=== PATIENT | female | born 2005 | race African-American/Black ===

== ENCOUNTER 2024-01-30 18:07 | Emergency (ER) | payer MEDICAID, SELFPAY ==
--- NOTE | 2024-01-30 18:14 | ED.URI ---
HPI - URI/Sore Throat General Chief Complaint: Upper Respiratory Infection Stated Complaint: SORE THROAT Time Seen by Provider: 01/30/24 18:21 History of Present Illness HPI Narrative: 18 y/o female presented for c/o sore throat x2 days. Pain is worse in the morning and associated with sinus congestion/drainage. Denies sob, wheezing, n/v/d/f/c. Not taking anything for symptoms. Review of Systems Review of Systems: CONSTITUTIONAL: Denies body aches, fever, chills, or sweats. EYES: Denies visual changes, redness, or discharge. ENT: Reports rhinorrhea, congestion, sore throat CARDIOVASCULAR: Denies chest pain, palpitations, or edema. RESPIRATORY: Denies dyspnea. GASTROINTESTINAL: Denies abdominal pain, nausea, vomiting, or diarrhea. SKIN: Denies rash, itching, or wounds. MUSCULOSKELETAL: Denies back pain, joint pain, or myalgia. NEUROLOGIC: Denies headache Exam Narrative: GENERAL: well-appearing, no acute distress. EYES: conjunctivae clear ENT: Mucous membranes moist. TMs pearly topete with normal light reflex bilaterally; no tragal tenderness. Oropharynx erythematous without lesions. Tonsils enlarged 2+ with exudate. No drooling, no hoarseness, no trismus, uvula midline. No tripod positioning, hot potato voice, or soft palate swelling. NECK: Supple. No lymphadenopathy CHEST: Clear to auscultation, breath sounds equal. No respiratory distress, speaks in full sentences. HEART: Regular rate and rhythm. No murmur heard. SKIN: Warm, dry, no rash. NEURO: Alert and oriented x3. Course Course Emergency Course: Patient is aware of diagnosis, understands and agrees to treatment plan. Anticipatory guidance given. Patient agrees to follow-up as directed and is aware of reasons to seek care at the emergency department. Portions of this record may have been created with voice recognition software Level of Care: Express Care Visit MDM - URI/Sore Throat MDM Narrative Medical decision making narrative: Neg strep result reviewed with pt. will treat based on PE and CC. Advise supportive treatments. Patient is appropriate for outpatient treatment and follow-up. Differential Diagnosis Differential diagnosis: Likely upper respiratory infection, viral infection and pharyngitis Discharge Plan Discharge Clinical Impression: Pharyngitis Patient Disposition: Home, Self-Care Condition: Stable Instructions: Antibiotic Form, Strep Throat (ED) Additional Instructions: Strep test negative. You will be given the antibiotic based on your symptoms and the physical exam. - Take the antibiotic as directed. Fever and sore throat typically resolve within one to three days. Most patients can return to work, school, after 12 to 24 hours of antibiotic therapy, provided you are fever free and otherwise well. -Eat and drink things that are easy to swallow, like soft foods, cool liquids, tea with honey, or popsicles . -Salt water gargles and/or may use topical anesthetic ( Chloraseptic spray) or lozenges to relieve dryness or throat pain -Alternate Tylenol and ibuprofen as needed for pain and fever as directed. -Frequent hand washing or hand digital marketing analyst is one of the best ways to prevent spread of infection. Throw away the toothbrush after 24hours of antibiotic. -Follow up with primary care provider in 2-3 days if condition is not improving -Go to the ER if you have trouble breathing, cannot drink enough fluids, have muffled voice or drooling, difficulty opening your mouth, or severe swelling. Prescriptions: New azithromycin [Zithromax Z-Lukas] 250 mg tablet See Rx Instructions .ROUTE .COMPLEX Qty: 6 0RF Rx Instructions: For 250 mg dose pack: take 500 mg today (day 1), then 250 mg for 4 days (days 2-5) Follow-up/Referrals: UNKNOWN,DOCTOR [Primary Care Provider] - Time of Disposition: 18:31
[2024-01-30 18:24] VITALS: BP 122/77; PULSE 92; RESP 16; TEMP 37; O2SAT 100
== END 2024-01-30 18:33 | disposition home or self-care (01) ==
PROVIDERS: Emergency Provider Nurse Practitioner Family
DX: J02.9 Acute pharyngitis, unspecified (principal)
CPT/HCPCS: 87081; 87880; 99213; G0463

== ENCOUNTER 2024-03-15 15:19 | Emergency (ER) | payer MEDICAID, SELFPAY ==
[2024-03-15 15:26] VITALS: BP 120/72; PULSE 108; RESP 16; TEMP 37.6; O2SAT 100
--- NOTE | 2024-03-15 15:56 | ED.GENADULT ---
HPI - General Adult General Chief complaint: Upper Respiratory Infection Stated complaint: Strep Symptoms Time Seen by Provider: 03/15/24 15:56 Source: patient, RN notes reviewed and old records reviewed Mode of arrival: ambulatory Limitations: no limitations History of Present Illness HPI narrative: 18-year-old female to Express Care for complaint nausea, vomiting, generalized body aches, diarrhea, sore throat that started yesterday. Patient states she has vomited twice today and has had five episodes of diarrhea today. Patient denies pertinent medical history. Patient denies any known sick contacts. Related Data Allergies Allergy/AdvReac Type Severity Reaction Status Date / Time mold Allergy Other Verified 01/30/24 18:32 peanut Allergy Rash Verified 03/15/24 16:05 Penicillins Allergy Other Verified 01/30/24 18:32 Review of Systems Review of Systems: All systems reviewed & are unremarkable except as noted in HPI and below Constitutional: Constitutional: Reports as per HPI, Reports body ache(s), Reports chills, Reports lethargy and Reports poor appetite Eyes: Eyes: Reports no additional eye complaints ENT: Reports as per HPI and Reports sore throat Cardiovascular: Cardiovascular: Reports no additional cardiovascular complaints, Denies chest pain and Denies dyspnea Respiratory: Respiratory: Reports no additional respiratory complaints, Denies cough and Denies dyspnea Gastrointestinal: Gastrointestinal: Reports diarrhea, Reports nausea and Reports vomiting Musculoskeletal: Musculoskeletal: Reports as per HPI and Reports myalgias Neurologic: Reports system reviewed and no additional complaints, except as documented Psychiatric: Psychiatric: Reports no additional psychiatric complaints PMFSH Comments At the time of my signature, I reviewed and agree with the nursing past medical, surgical, social, and family history. There is no relevant family history pertinent to the patient complaint. Exam Const: General: cooperative, no acute distress, well developed, alert, ill appearing acutely, tired appearing, uncomfortable, well groomed and well nourished Nutritional Appearance: well nourished Orientation/consciousness: patient oriented x3 Limitations: no limitations HENMT: Head: normal to inspection Ears: external ears normal Face/Nose/Sinus: Normal external nose present, Normal nares present, normal facial exam, No erythema and No edema Face and sinus: normal facial exam, no erythema and no edema Mouth: Yes Normal oral and palatal mucosa present Throat: postnasal drainage Eyes: General: appearance normal, both eyes and all related structures Neck: Neck: normal visual inspection, full ROM and no meningeal signs Lymphatic: no lymphadenopathy noted and no lymphedema noted Chest: Chest palpation & inspection: normal inspection of the chest Resp: Effort & Inspection: normal respiratory effort and able to speak in complete sentences Auscultation: clear to auscultation bilaterally Cardio: Jugular venous distension: no JVD Rate: regular rate Rhythm: regular rhythm GI: Inspection: non-distended and No visible peristalsis Back/Spine/Pelvis: Cervical Spine: cervical ROM normal Skin: General skin exam: normal color, no rashes or lesions noted and turgor normal Neuro: General: patient oriented x3, gait normal, moves all extremities and no meningeal signs Speech: normal speech Gait exam (Neuro): Normal gait present Extrem: General: normal to inspection, full ROM and capillary refill normal Psych: Appearance: grossly normal and well kempt Course Course Emergency Course: Some parts of this dictation were generated by voice recognition software and may contain typographical and/or grammatical inaccuracies. Level of Care: Express Care Visit Vital Signs Vital signs: Vital Signs Temperature 37.6 C H 03/15/24 15:26 Pulse Rate 108 H 03/15/24 15:26 Respiratory Rate 16 03/15/24 15:26 Blood Pressure
== END 2024-03-15 16:24 | disposition home or self-care (01) ==
PROVIDERS: Emergency Provider Nurse Practitioner Family
DX: B34.9 Viral infection, unspecified (principal); K21.9 Gastro-esophageal reflux disease without esophagitis; Z20.822 Contact with and (suspected) exposure to COVID-19
CPT/HCPCS: 87081; 87426; 87804; 87880; 99213; G0463

== ENCOUNTER 2024-07-18 22:46 | Emergency (ER) | payer MEDICAID, SELFPAY ==
[2024-07-18 22:56] VITALS: BP 130/90; PULSE 109; RESP 18; TEMP 37.4; O2SAT 100
[2024-07-18 23:32] LABS: Strep Group A RT-PCR NOT DETECTED (Negative)
[2024-07-18 23:44] LABS: Influenza A QL RT-PCR Negative (Negative); Influenza B QL RT-PCR Negative (Negative); RSV RNA, RT-PCR Negative (Negative); SARS-CoV-2 RNA PCR Positive (Negative)
--- NOTE | 2024-07-19 02:04 | PC.NURSE ---
1st call no answer.
== END 2024-07-19 02:04 | disposition left against medical advice (07) ==
LOC: ANHED 07-19 02:11
PROVIDERS: Emergency Provider Family Medicine
DX: R51.9 Headache, unspecified (principal)
CPT/HCPCS: 87637; 87651; 99199

== ENCOUNTER 2024-09-13 14:27 | Emergency (ER) | payer SELFPAY ==
--- NOTE | ~2024-09-13 | XR_ITS ---
XR chest 2V Ordering provider: Betsey Johnson PA-C History: 19 years Female with . cough, CONGESTION X 3 WEEKS . Comparison: None. FINDINGS: MEDIASTINUM: The cardiac silhouette is not enlarged. LUNGS: No infiltrates, effusions or pneumothorax. OTHER: No free air under the diaphragm. IMPRESSION: No acute cardiopulmonary pathology. Reviewed, dictated and finalized at location A.
[2024-09-13 14:34] VITALS: BP 135/89; PULSE 115; RESP 22; O2SAT 100
[2024-09-13 14:37] VITALS: TEMP 37
[2024-09-13 15:33] LABS: Influenza A QL RT-PCR Negative (Negative); Influenza B QL RT-PCR Negative (Negative); RSV RNA, RT-PCR Negative (Negative); SARS-CoV-2 RNA PCR Negative (Negative)
--- NOTE | 2024-09-13 15:39 | ED.URI ---
HPI - URI/Sore Throat General Chief Complaint: Upper Respiratory Infection Stated Complaint: cough Time Seen by Provider: 09/13/24 14:38 Source: patient Mode of arrival: ambulatory Limitations: no limitations History of Present Illness HPI Narrative: This is a 19 year old female that presents to the ER for cold symptoms. Present over the last week. Reports cough, congestion, rhinorrhea. Reports history of asthma and that she has been wheezing. She does not currently have an inhaler. Denies fevers. Related Data Allergies Allergy/AdvReac Type Severity Reaction Status Date / Time mold Allergy Other Verified 09/13/24 14:30 peanut Allergy Rash Verified 09/13/24 14:30 Penicillins Allergy Other Verified 09/13/24 14:30 Review of Systems Review of Systems: CONSTITUTIONAL: Denies fever ENT: Reports rhinorrhea, congestion RESPIRATORY: Reports cough and dyspnea. All systems reviewed & are unremarkable except as noted in HPI and below PMFSH Past Medical History Medical History (Updated 09/13/24 @ 16:17 by Betsey Johnson PA-C) History of asthma Social History Social History (Updated 09/13/24 @ 15:40 by Betsey Johnson PA-C) Smoking status: Never smoker Exam Narrative: GENERAL: Well-appearing, well-nourished, and in no acute distress. HEAD: Normocephalic, atraumatic. EYES: EOMI. ENT: Nares clear, no rhinorrhea or epistaxis. Mucous membranes moist. Oropharynx without tonsillar hypertrophy exudate or other lesions. Bilateral TMs pearly topete non-bulging NECK: Supple. No adenopathy or masses. CHEST: No respiratory distress. Lung sounds mildly diminished. No wheezes rales or rhonchi HEART: Regular rate and rhythm. No murmur heard. Normal peripheral pulses. EXTREMITIES: Normal range of motion. No edema. SKIN: Warm, dry, no rash. NEURO: No focal deficits. Alert and oriented x3. PSYCH: Normal mood and affect Course Course Emergency Course: Patient with improvement after nebulizer treatment Vital Signs Vital signs: Vital Signs Pulse Rate 115 H 09/13/24 14:34 Respiratory Rate 22 H 09/13/24 14:34 Blood Pressure 135/89 09/13/24 14:34 Pulse Oximetry 100 09/13/24 14:34 Temperature 98.6 F 09/13/24 14:37 Pulse Rate 110 H 09/13/24 15:59 Respiratory Rate 20 09/13/24 15:59 Blood Pressure 135/89 09/13/24 14:34 Pulse Oximetry 100 09/13/24 14:34 Oxygen Delivery Room Air 09/13/24 15:08 MDM - URI/Sore Throat MDM Narrative Medical decision making narrative: Patient presents the emergency department for cold symptoms present over the last week. She is afebrile and nontoxic appearing. Tachycardic upon arrival, this improved after treatment of her asthma. Influenza, RSV and COVID screens are negative. Chest x-ray without acute cardiopulmonary abnormality. Patient received nebulizer treatment and a dose of prednisone with improvement. Instructed on further care of likely viral infection. Will be continued on oral steroids and given prescription for albuterol inhaler for asthma exacerbation. She is to follow up with primary provider. She was given warnings to return to the ER Differential Diagnosis Differential diagnosis: Likely upper respiratory infection, viral infection, bronchitis, influenza and other (asthma exacerbation, pneumonia) Lab Data Attestation: I reviewed the patient's lab results. Labs: Lab Results 09/13/24 Range/Units 14:53 Influenza A (RT-PCR) Negative (Negative) Influenza B (RT-PCR) Negative (Negative) RSV (RT-PCR) Negative (Negative) SARS-CoV-2 RNA (RT-PCR) Negative (Negative) Imaging Data Radiologist's impression: ITS Impressions Chest X-Ray 09/13/24 14:49 IMPRESSION: No acute cardiopulmonary pathology. Critical Care Time Critical Care Time Critical Care Time: No Discharge Plan Discharge Clinical Impression: Upper respiratory infection Qualifiers: URI type: unspecified URI Qualified Code(s
[2024-09-13 15:47] VITALS: PULSE 113; RESP 21
[2024-09-13] MEDS: IPRATROPIUM 0.5 MG/ALBUTEROL SULFATE 2.5 MG AMPUL.NEB 3 ML INHALATION (15:48)
[2024-09-13] MEDS: predniSONE 20 MG TABLET 40 MG PO (15:49)
[2024-09-13 15:59] VITALS: PULSE 110; RESP 20
[2024-09-13 16:30] VITALS: BP 122/85; PULSE 97; RESP 18; TEMP 37.2; O2SAT 100
== END 2024-09-13 16:35 | disposition home or self-care (01) ==
PROVIDERS: Emergency Provider Physician Assistant
DX: J06.9 Acute upper respiratory infection, unspecified (principal); J45.901 Unspecified asthma with (acute) exacerbation; Z20.822 Contact with and (suspected) exposure to COVID-19
CPT/HCPCS: 71046; 87637; 94640; 99283; J7512

== ENCOUNTER 2025-02-15 20:52 | Emergency (ER) | payer BC, SELFPAY ==
[2025-02-15 20:54] VITALS: BP 136/90; PULSE 108; RESP 15; TEMP 36.9; O2SAT 99
--- OUTSIDE RECORDS SUMMARY | 2025-02-15 20:55 | XMS_ITS | Clinical Summary ---
Author Organization [facility] Address [address] [place] [address] Care Team Providers Care Stock Speculator Name Role Phone Oanh Ennis MD Primary Care Provider [phone] Network, [facility] Unavailable Unavai lable Allergies Active Allergy Reactions Criticality Noted Date Comments Mold Extracts Unknown 01/31/2011 Penicillins Unknown 01/31/2011 Peanut Other 01/01/2009 Facial swelling Tomato Unknown 01/31/2011 Medications cetirizine (ZYRTEC) 10 mg PO tabletIndication s:Environmental allergies take 1 tablet by mouth daily as needed. 02/08/2021 Active EPINEPHrine (EpiPen 2-Lukas) 0.3 mg/0.3 mL Inj pen injector inject 0.3 mL into the muscle as needed for Anaphylaxis . 2 each 02/08/2021 Active ofloxacin (OCUFLOX) 0.3 % Opht eye drops apply 1 drop into both eyes four times daily. 1 Bottle 02/08/2021 Active norgestimate-eth inyl estradioL (ORTHO TRI-CYCLEN LO) 0.18/0.215/0.25 mg-25 mcg PO tablet take 1 tablet by mouth daily. 1 Package 1 02/08/2021 Active Active Problems Patient Care Coordination No te Formatting of this note migh t be different from the original. Risk - Low-Social Problem Noted Date Diagnosed Date BMI (body mass index), pediatric, 95-99% for age 0706/12/2015 Acanthosis nigricans 06/05/2015 Eczema 03/21/2014 Healthcare maintenance 03/09/2014 Allergic rhinitis due to other allergen 06/13/20 13 Intermittent asthma 02/18/2011 Overview (02/14/2021): As of 02/08/21--last albuterol use around 9709-3803 Food allergy 02/18/2011 Overview (03/09/2014): Tomatoes, peanuts; no recent A+I visits (diagnosed by RAST testing) Resolved Problems Problem Noted Date Diagnosed Date Resolved Date Leg pain, bilateral 03/21/2014 06/05/20 15 Hip pain, bilateral 03/21/2014 06/05/20 15 Exercise-induced asthma 06/13/201301/22 Scoliosis concern 09/07/2012 06/05/2015 Overview (09/07/2012): Mild curve on standing. Will continue to follow clinically BMI,pediatric > 99% for age 0402/21/2011 06/12/2015 Headache 02/21/2011 06/05/2015 Overview (09/01/2017): Likely migraine, keeping MACEDO diary IMO Load - [id number] Failed vision screen 02/21/2011 014 Overview (09/07/2012): Referred to ophthalmology. Now wearing glasses. Scabies 02/04/2010 02/18/2011 Overview (02/04/2010): Gave Rx for Permethrin x 2 doses. Immunizations Immunization Administration Dates Next Due Adacel - Tetanus-diphtheria- acellular Pertussis (Tdap) Vaccine 06/05/2015 Yspvnygkac-fxsjldv-smmjgrnkv Pertussis (DTaP) Injection 07/03/2009,06/07/2009,08/28/2008,09/09,2004 Fluarix (Pf) - Influenza Vac cine Quad Linette 0.5 Ml Im Injection 02/08/2021,09/08/2016 Gardasil - Human Papilloma V irus Vaccine 06/05/2015 Gardasil 9 - Human Papilloma Virus Vaccine 09/08/2016 Hepatitis A,ped/adol,2-Dose 07/10/2011 M-M-R II - MEASLES,MUMPS,RUB CATHY VACCINE 08/28/2008,04/03/2005 MENACTRA - MENINGOCOCCAL VAC CINE A,C,Y,W-135 50 MCG 06/05/2015 MENVEO - MENINGOCOCCAL VACCI NE A,C,Y,W-135-DIP 10CG-5 MCG 02/08/2021 PREVNAR 7 - PNEUMOCOCCAL 7-V ALPS VACCINE 04/03/2005,2004,2004,06/07 VARIVAX - VARICELLA VIRUS VA CCINE LIVE 1,350 UNIT/0.5 ML 08/28/2008,04/03/2005 haemophilus B conjugated inj ection (HIB) 07/08/2005,2004,2004,06/07 hepatitis A vaccine injection, Adult 07/03/2009 hepatitis B vaccine injection 2004, 004,2004 inactivated poliovirus vacci ne injection/oral 08/28/2008,2004,2004,06/07 influenza virus vaccine injection 11/30/2013,,01/31/2011 Family History Medical History Relation Comments Coronary Artery Disease Maternal Grandmother den ies Diabetes Maternal Grandmother denies Hypertension Maternal Grandmother denies Lipid Problems Maternal Grandmother denies Pulmonary Maternal Grandmother asthma Neurology Mother migraines Obesity Mother Relation Status Comments Maternal Grandmother Mother Alive lives with Social History Tobacco Use Types Packs/Day Years Used Date Smoking Tobacco: Never Smokeless Tobacco: Never Alcohol Use Standard Drinks/Week Comments Never 0 (1 standard drink = 0.6 oz pur e alcohol) Social Connections Answer Date Recorded Conversations with friends/family/neighbors per week Not on file 01/31/2021 Food Insecurity Answer Date Recorded Currently or in the past 3 m [facility], have you worried your food would run out before you had money to buy more? No 2020 In the past 12 months, have you run out of food or been unable to get more? No 02/08/2021 Transportation Needs Answer Date Record ed Currently or in the past 3 m [facility], has lack of transportation kept you from medical appointments, getting food or medicine, or providing care to a family member? Unrecognized value 02/08/2021 Has the lack of transportati on kept you from meetings, work, or from getting things needed for daily living? Unrecognized value 02/08/2021 Medical Transportation Needs? Patient refused Daily Living Transportation Needs? [Peds Only] P atient refused 02/08/2021 Housing Stability Answer Date Recorded Mortgage Payment Concerns? Not on file 02/16 [address] of Places Lived in the Last Year Not on f ile 02/16/2022 Unstable Housing? Not on file 02/16/2022 Caregiver Education and Work Answer Ritchie e Recorded Do you ever need help reading hospital materials ? No 02/08/2021 Do you have a high school degree? No 02/08/2021 Legal Advice Answer Date Recorded Do you have concerns about a [place] matters for you or your family? No 02/08/2021 Do you need legal advice to help with any proble ms? No 02/08/2021 Utilities Answer Date Recorded Currently or in the past 12 months, have you or household members gone without utilities (heat, water, electricity)? No 02/08/2021 Comments No Sex and Gender Information Value Date Recorded Sex Assigned at Not on file Legal Sex Female 4:24 PM APPLICATION DEVELOPMENT LIAISON Gender Identity Not on file Sexual Orientation Not on file Last Filed Vital Signs Vital Sign Reading Time Taken Comments Blood Pressure 110/70 05/07/2023 3:47 PM CDT Pulse 76 05/07/2023 3:47 PM CDT Temperature 36.3 C (97.4 F) 05/07/2023 3:47 PM CDT Respiratory Rate 18 05/07/2023 3:47 PM CDT Oxygen Saturation 98% 05/07/2023 3:47 PM CDT Inhaled Oxygen Concentration - - Weight 87.5 kg (193 lb) 05/07/2023 3:46 PM CDT Height 160 cm (5' 2.99 ) 05/07/2023 3:46 PM CDT Body Mass Index 34.2 05/07/2023 3:46 PM CDT Plan of Treatment Health Maintenance Due Date Last Done Comments Meningococcal B (1 of 2 - Standard) 2020 Pneumococcal 7-64 (1 of 2 - PCV) 2023 04/03/2005, 2004, 2004, Additional history exists Chlamydia and Gonorrhea Screening 05/07/2024 023, 03/31/2023 Influenza Vaccine (#1) 2024 , 09/08/2016, 11/30/2013, Additional history exists COVID-19 Vaccine (3 - 2023-2 5 season) 2024 11/02/2021, 10/11/2021 DTaP,Tdap and Td Vaccines (6 - Td or Tdap) 06/05/2025 06/05/2015, 07/03/2009, 06/07/2009, Additional history exists HPV Vaccines Completed 09/08/2016, 06/05/2015 Hepatitis C Screening Completed 03/31/2023 HIV Screening Completed 05/07/2023, 03/31/2023 Procedures Procedure Name Priority Date/Time Associated Diagnosis Comments HIV ANTIGEN/ANTIBODY Routine 05/07/2023 4:28 PM CDT Routine screening for STI (sexually transmitted infection) CHLAMYDIA TRACHOMATIS,NEISSERI A GONORRHOEAE,AND TRICHOMONAS VAG Routine 05/07/2023 4:16 PM CDT Routine screening for STI (sexually transmitted infection) [facility] HEPATITIS C ANTIBODY Routine 03/31/2023 3:51 PM CDT Routine screening for STI (sexually transmitted infection) from Last 3 Months or Most Recently Relevant to Health Maintenance Results * HIV Antigen/Antibody (05/07/2023 4:28 PM CDT) HIV AG/AB Not Detected Not Detected [facility] Comment:HIV-1 p24 Ag and HIV -1/HIV-2 Ab not detected. 05/07/2023 4:28 PM CDT 05/07/2023 7:36 PM CDT us Lidia Sidhu MD LAB BLOOD ORDERABLES Final R esult [facility] [address] [place] [address] * Chlamydia trachomatis, Neisseria gonorrhoeae, and Trichomonas vaginalis, FER (05/07/2023 4:16 PM CDT) C.TRACHOMATIS, FER Negative Negative [facility] 1 N.GONORRHOEAE, FER Negative Negative [facility] 1 TRICH VAG BY FER Negative Negative [facility] 1 URINE SPECIMEN / Unknown 05/07/2023 4:16 PM CDT 05/06/2023 11:00 PM CDT Comment:URINE Narrative [facility] - 05/09/2023 10:08 AM CDT SRC:URINE Performed at: - [facility] [id number] Air Tank Assembler: Josy Gale MD, Phone: [phone] Lidia Sdihu MD LAB NON-BLOOD MICRO Final Re sult Performing Organization Address City/[facility]/ZIP Co de Phone Number [facility] [address] [place] [address] [facility] 1 * Hepatitis C Virus Antibody (03/31/2023 3:51 PM CDT) HEP C AB Not Detected Not Detected [facility] Comment: Antibodies to HCV not detected. This does not exclude the possibility of exposure to HCV. 03/31/2023 3:51 PM CDT 03/31/2023 7:30 PM CDT Lidia Sidhu MD LAB BLOOD ORDERABLES Final R esult [facility] [address] [place] [address] from Last 3 Months or Most Recently Relevant to Health Maintenance Insurance MEDICAID REPLACEMENT MEDICAID REPLACEMENT Care Teams Stock Speculator Relationship Specialty Start Date End Date Oanh Ennis MD PCP - General 02/21/09 Network, n Medical Home PCP - Medical Home 05/23/13
--- OUTSIDE RECORDS SUMMARY | 2025-02-15 20:55 | XMS_ITS | Referral Summary ---
Author Organization [facility] Address [address] [place] [address] Care Team Providers Care Atv Mechanic Name Role Phone Oanh Ennis MD Primary Care Provider [phone] Network, [facility] Unavailable Unavai lable Allergies [...] (02/14/2021): As of 02/08/21--last albuterol use around [id number] Food allergy 02/18/2011 Overview (03/09/2014): Tomatoes, peanuts; [...] migraine, keeping MACEDO diary IMO Load - [id number] Failed vision screen 02/21/2011 014 Overview (09/07/2012): Referred to ophthalmology. Now wearing glasses. Scabies 02/04/2010 02/18/2011 Overview (02/04/2010): Gave Rx for Permethrin x 2 doses. Immunizations Immunization Administration Dates Next Due Adacel - Tetanus-diphtheria- acellular Pertussis (Tdap) Vaccine 06/05/2015 Zhegdmbvcq-wmodalr-hfltbkgab Pertussis (DTaP) Injection 07/03/2009,06/07/2009,08/28/2008,09/09,2004 Fluarix (Pf) - [...] injection/oral 08/28/2008,2004,2004,06/07 influenza virus vaccine injection 11/30/2013,,01/31/2011 Social History Tobacco Use Types Packs/Day Years Used Date Smoking Tobacco: Never Smokeless Tobacco: Never Alcohol Use Standard Drinks/Week Comments Never 0 (1 standard drink = 0.6 oz pur e alcohol) Social Connections Answer Date Recorded Conversations with friends/family/neighbors per week Not on file 01/31/2021 Food Insecurity Answer Date Recorded Currently or in the past 3 m onths, have you worried your food would run out before you had money to buy more? No 2020 In the past 12 months, have you run out of food or been unable to get more? 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 05/07/2023 4:28 PM CDT 05/07/2023 7:36 PM CDT us Lidia Sidhu MD LAB BLOOD ORDERABLES Final R esult Performing Organization Address City/[facility]/ZIP Co de Phone Number [facility] [address] [place] [address] * Chlamydia trachomatis, Neisseria gonorrhoeae, and Trichomonas vaginalis, FER (05/07/2023 4:16 PM CDT) Pathologist [facility] C.TRACHOMATIS, FER Negative Negative [facility] 1 N.GONORRHOEAE, FER Negative Negative [facility] 1 TRICH VAG BY FER Negative Negative [facility] 1 URINE SPECIMEN / Unknown 05/07/2023 4:16 PM CDT 05/06/2023 11:00 PM CDT Comment:URINE Narrative [facility] - 05/09/2023 10:08 AM CDT SRC:URINE Performed at: 01 - [facility] [id number] Bartenders: Josy Gale MD, Phone: [phone] us Lidia Sidhu MD LAB NON-BLOOD MICRO Final Re sult Performing Organization Address City/[facility]/ZIP Co de Phone Number [facility] [address] [place] [address] [facility] 1 * Hepatitis C Virus Antibody (03/31/2023 3:51 PM CDT) HEP C AB Not Detected Not Detected [facility] Comment: Antibodies to HCV not detected. This does not exclude the possibility of exposure to HCV. 03/31/2023 3:51 PM CDT 03/31/2023 7:30 PM CDT Lidia Sidhu MD LAB BLOOD ORDERABLES Final R esult [facility] [address] [place] [address] from Last 3 Months or Most Recently Relevant to Health Maintenance Insurance MEDICAID REPLACEMENT MEDICAID REPLACEMENT Care Teams Atv Mechanic Relationship Specialty Start Date End Date Oanh Ennis MD PCP - General 02/21/09 Network, n Medical Home PCP - Medical Home 05/23/13
--- OUTSIDE RECORDS SUMMARY | 2025-02-15 20:55 | XMS_ITS | Encounter Summary ---
Author Organization [facility] Address [address] [place] [address] Care Team Providers Care Supervisor Coremaker Name Role Phone Oanh Ennis MD Primary Care Provider [phone] [facility] Unavailable Vanessa Armstrong [facility] Unavailable [phone] Katelin Galarza Unavailable Nicole Trujillo RN Unavailable Unavailable Stephon Rg Unavailable Reason for Visit * Reason Comments Refill Request Encounter Details Date Type Department Care Team (Late st Contact Info) Description 04/09/2015 Refill [facility] [address] [facility] [address] [place], [place] [id number] Oanh Ennis MD [address] [facility] [address] [place] [address] Refill Request Social History Tobacco Use Types Packs/Day Years Used Date Smoking Tobacco: Never Assessed Comments No Sex and Gender Information Value Date Recorded Sex Assigned at Not on file 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 Gender Identity Not on file Sexual Orientation Not on file documented as of this encounter Plan of Treatment Not on file documented as of this encounter Visit Diagnoses Not on filedocumented in this encounter Care Teams Supervisor Coremaker Relationship Specialty Start Date End Date Oanh Ennis MD PCP - General 4/1/09 [facility], n Medical Home PCP - Medical Home 05/23/13 Vanessa Goodwin LCSW [address] [address] [place] [address] [employer] Developer 12/03/15 01/21/17 Katelin Galarza [address] [facility] [address] [place] [address] [employer] Developer 12/03/15 05/08/16 Nicole Trujillo, RN [employer] 12/10/15 01/21/17 Stephon Rg [address] [facility] [address] [place] [address] [employer] Developer 05/09/16 01/21/17 documented as of this encounter
--- OUTSIDE RECORDS SUMMARY | 2025-02-15 20:55 | XMS_ITS | Encounter Summary ---
Author Organization [facility] Address [address] [place] [address] Care Team Providers Care Dye Colorist Formulator Name Role Phone Oanh Ennis MD Primary Care Provider Network, [facility] Unavailable Kiran mc Encounter Details Date Type Department Care Team (Late st Contact Info) Description 02/09/2021 Social Referral Visit [place] [address] [place] [address] Social History Tobacco Use Types Packs/Day Years Used Date Smoking Tobacco: Never Social Connections Answer Date Recorded Conversations with friends/family/neighbors per week Not on file 01/31/2021 Food Insecurity Answer Date Recorded Currently or in the past 3 m [facility], have you worried your food would run out before you had money to buy more? No 2020 In the past 12 months, have you run out of food or been unable to get more? No 02/08/2021 Transportation Needs Answer Date Record ed Currently or in the past 3 m ont, has lack of transportation kept you from [...] Stability Answer Date Recorded Mortgage Payment Concerns? No 02/08 Number of Places Lived in the Last Year 1 02/08/2021 Unstable Housing? 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
--- NOTE | 2025-02-15 21:09 | ED.NAVMDI ---
HPI - Nausea/Vomiting/Diarrhea General Chief complaint: Nausea/Vomiting/Diarrhea <Tee Jones MD - Last Filed: 02/15/25 21:12> Stated complaint: Diarrhea, fever and vomiting <Tee Jones MD - Last Filed: 02/15/25 21:12> Time Seen by Provider: 02/15/25 21:07 <Tee Jones MD - Last Filed: 02/15/25 21:12> Source: patient <Tee Jones MD - Last Filed: 02/15/25 21:12> Mode of arrival: ambulatory <Tee Jones MD - Last Filed: 02/15/25 21:12> Limitations: no limitations <Tee Jones MD - Last Filed: 02/15/25 21:12> History of Present Illness HPI Narrative: 19-year-old otherwise healthy here with the complaints of nausea, vomiting, diarrhea, abdominal cramping since this morning. She thinks she may be having put poisoning. She denies any fever or chills. No other family member is sick. <Tee Jones MD - Last Filed: 02/15/25 21:12> MD elicited complaint: nausea, vomiting and diarrhea <Tee Jones MD - Last Filed: 02/15/25 21:12> Onset (ago): day(s) (1) <Tee Jones MD - Last Filed: 02/15/25 21:12> Description of vomiting: watery <Tee Jones MD - Last Filed: 02/15/25 21:12> Associated nausea: Yes <MD Loreta Davis Last Filed: 02/15/25 21:12> Associated abdominal pain: No <MD Loreta Davis Last Filed: 02/15/25 21:12> Location of pain: none <MD Loreta Davis Last Filed: 02/15/25 21:12> Quality: cramping <Tee Jones MD - Last Filed: 02/15/25 21:12> Context: possible food poisoning <MD Loreta Davis Last Filed: 02/15/25 21:12> Related Data Allergies/Adverse reactions: Allergies Allergy/AdvReac Type Severity Reaction Status Date / Time mold Allergy Other Verified 02/15/25 20:53 peanut Allergy Rash Verified 02/15/25 20:53 Penicillins Allergy Other Verified 02/15/25 20:53 <Tee Jones MD - Last Filed: 02/15/25 21:12> Review of Systems Review of Systems: All systems reviewed & are unremarkable except as noted in HPI and below <Tee Jones MD - Last Filed: 02/15/25 21:12> Constitutional: Constitutional: Reports no additional constitutional complaints <Tee Jones MD - Last Filed: 02/15/25 21:12> Eyes: Eyes: Reports no additional eye complaints <Tee Jones MD - Last Filed: 02/15/25 21:12> ENT: Reports system reviewed and no additional complaints, except as documented <Tee Jones MD - Last Filed: 02/15/25 21:12> Cardiovascular: Cardiovascular: Reports no additional cardiovascular complaints <Tee Jones MD - Last Filed: 02/15/25 21:12> Respiratory: Respiratory: Reports no additional respiratory complaints <Tee Jones MD - Last Filed: 02/15/25 21:12> Gastrointestinal: Gastrointestinal: Reports as per HPI <Tee Jones MD - Last Filed: 02/15/25 21:12> Musculoskeletal: Musculoskeletal: Reports no additional musculoskeletal complaints <Tee Jones MD - Last Filed: 02/15/25 21:12> PMFSH Past Medical History Medical History: Medical History (Updated 02/15/25 @ 21:12 by Tee Jones MD) History of asthma <Tee Jones MD - Last Filed: 02/15/25 21:12> Social History Social History: Social History (Updated 09/13/24 @ 15:40 by Betsey Johnson PA-C) Smoking status: Never smoker <Tee Jones MD - Last Filed: 02/15/25 21:12> Exam Narrative: GENERAL: Well-appearing, well-nourished, and in no acute distress. HEAD: Normocephalic, atraumatic. EYES: PERRLA and EOMI. ENT: Nares clear, no rhinorrhea or epistaxis. Mucous membranes moist. NECK: Supple. CHEST: Clear to auscultation. No respiratory distress. HEART: Regular rate and rhythm. No murmur heard. Normal peripheral pulses. ABDOMEN: Soft, nontender, nondistended, normal active bowel sounds. EXTREMITIES: Normal range of motion. No edema. SKIN: Warm, dry, no rash. NEURO: No focal deficits. Alert and oriented x3. PSYCH: Normal mood and affect. <Tee Jones MD - Last Filed: 02/15/25 21:12> Course Course Emergency Course: Patient signed out to myself pending lab work and re-evaluation. CBC without leukocytosis. Chemistries significant for bicarb of 18 and anion gap of 14 consistent with dehydration. Creatinine within normal limits, glucose normal at 89. Lipase and LFTs are unremarkable. UA with 2+ ketonuria, no UTI. negative. Viral swabs negative. Patient was updated on these results. She was given IV fluids, Tylenol and Zofran with improvement. Fever has improved. On re-evaluation abdomen is soft and nontender. She is tolerating p.o. intake. Suspect viral gastroenteritis. Will send Tylenol and Zofran to the pharmacy. Discussed supportive care with clear liquid diet with slow advancement to bland diet, follow-up with PCP and strict ED return precautions. She is agreeable to the plan and verbalized understanding. Discharged in stable condition. <Fany Leone PA-C - Last Filed: 02/16/25 00:35> Vital Signs Vital signs: Vital Signs Temperature 98.5 F 02/15/25 20:54 Pulse Rate 108 H 02/15/25 20:54 Respiratory Rate 15 02/15/25 20:54 Blood Pressure 136/90 02/15/25 20:54 Pulse Oximetry 99 02/15/25 20:54 Oxygen Delivery Room Air 02/15/25 20:54 Temperature 100 F H 02/15/25 23:38 Pulse Rate 98 02/15/25 23:38 Respiratory Rate 14 02/15/25 23:38 Blood Pressure 121/79 02/15/25 23:38 Pulse Oximetry 100 02/15/25 23:38 Oxygen Delivery Room Air 02/15/25 20:54 <Tee Jones MD - Last Filed: 02/15/25 21:12> Vital Signs Temperature 98.5 F 02/15/25 20:54 Pulse Rate 108 H 02/15/25 20:54 Respiratory Rate 15 02/15/25 20:54 Blood Pressure 136/90 02/15/25 20:54 Pulse Oximetry 99 02/15/25 20:54 Oxygen Delivery Room Air 02/15/25 20:54 Temperature 100 F H 02/15/25 23:38 Pulse Rate 98 02/15/25 23:38 Respiratory Rate 14 02/15/25 23:38 Blood Pressure 121/79 02/15/25 23:38 Pulse Oximetry 100 02/15/25 23:38 Oxygen Delivery Room Air 02/15/25 20:54 <Fany Leone PA-C - Last Filed: 02/16/25 00:35> MDM - Nausea/Vomiting/Diarrhea Lab Data Result diagrams: 02/15/25 22:23 02/15/25 22:23 <eTe Jones MD - Last Filed: 02/15/25 21:12> Labs: Lab Results 02/15/25 02/15/25 02/15/25 Range/Units 22:23 23:39 23:44 WBC 5.1 (4.5-10.0) K/mm3 RBC 5.46 H (4.2-5.4) M/mm3 Hgb 12.8 (12.0-15.0) g/dL Hct 40.6 (37.0-47.0) % MCV 74.4 L (80-100) fl MCH 23.4 L (26-34) pg MCHC 31.5 L (32-36) g/dl RDW 15.2 H (11.5-14.5) % Plt Count 310 (150-375) k/mm3 MPV 9.0 (7.4-10.4) fl Immature Gran % (Auto) 0.8 H (0-0.5) % Neut % (Auto) 76.3 H (45.5-73.1) % Lymph % (Auto) 12.5 L (18.3-44.2) % [place] % (Auto) 10.2 H (2.6-8.5) % Eos % (Auto) 0.0 (0-4.4) % Baso % (Auto) 0.2 (0.2-1.2) % Lymph # (Auto) 0.64 L (0.9-3.2) K/mm3 [place] # (Auto) 0.5 (0.1-0.6) K/mm3 Eos # (Auto) 0.0 (0-0.3) K/mm3 Baso # (Auto) 0.0 (0.0-0.1) K/mm3 Abs Immat Gran (auto) 0.04 H (0.00-0.031) K/mm3 Absolute Neuts (auto) 3.9 (1.3-6.7) K/mm3 Absolute Nucleated RBC 0.000 (0.0-0.012) K/mm3 Band Neutrophils % Not Reportable Nucleated RBC % 0.0 (0.0-0.2) % Platelet Estimate Adequate (Adequate) Macrocytosis 1+ (NORMAL) Ovalocytes 1+ Schistocytes None seen Sodium 133 L (137-145) mmol/L Potassium 3.4 (3.4-5.0) mmol/L Chloride 101 (98-107) mmol/L Carbon Dioxide 18 L (22-30) mmol/L Anion Gap 14 H (4-12) mmol/L BUN 4 L (7-17) mg/dL Creatinine 0.58 L (0.7-1.0) mg/dL Estim Creat Clear Calc 143 ml/min Estimated GFR > 60 (59 - ) Glucose 89 (65-110) mg/dL Calcium 9.1 (8.4-10.2) mg/dL Total Bilirubin 0.6 (0.2-1.3) mg/dL AST 25 (14-36) U/L ALT 15 (6-35) U/L Alkaline Phosphatase 87 (38-126) U/L Total Protein 8.0 (6.3-8.2) g/dL Albumin 4.5 (3.5-5.1) g/dL Urine Color Yellow (Yellow) Urine Appearance Clear (Clear) Urine pH 6.0 (5.0-9.0) Ur Specific [place] 1.007 (1.001-1.035) Urine Protein Negative (Negative) mg/dL Urine Glucose (UA) Negative (Negative) mg/dL Urine Ketones 2+ H (Negative) mg/dL Ur Blood (Man) Negative (Negative) Urine Nitrate Negative (Negative) Urine Bilirubin Negative (Negative) Urine Urobilinogen 0.2 (<2.0) mg/dL Leukocyte Esterase Rfl Negative (Negative) SALINA/UL POC Urine HCG, Qual Negative (Negative) Influenza A (RT-PCR) Negative (Negative) Influenza B (RT-PCR) Negative (Negative) RSV (RT-PCR) Negative (Negative) SARS-CoV-2 RNA (RT-PCR) Negative (Negative) <Tee Jones MD - Last Filed: 02/15/25 21:12> Lab Results 02/15/25 02/15/25 02/15/25 Range/Units 22:23 23:39 23:44 WBC 5.1 (4.5-10.0) K/mm3 RBC 5.46 H (4.2-5.4) M/mm3 Hgb 12.8 (12.0-15.0) g/dL Hct 40.6 (37.0-47.0) % MCV 74.4 L (80-100) fl MCH 23.4 L (26-34) pg MCHC 31.5 L (32-36) g/dl RDW 15.2 H (11.5-14.5) % Plt Count 310 (150-375) k/mm3 MPV 9.0 (7.4-10.4) fl Immature Gran % (Auto) 0.8 H (0-0.5) % Neut % (Auto) 76.3 H (45.5-73.1) % Lymph % (Auto) 12.5 L (18.3-44.2) % [place] % (Auto) 10.2 H (2.6-8.5) % Eos % (Auto) 0.0 (0-4.4) % Baso % (Auto) 0.2 (0.2-1.2) % Lymph # (Auto) 0.64 L (0.9-3.2) K/mm3 [place] # (Auto) 0.5 (0.1-0.6) K/mm3 Eos # (Auto) 0.0 (0-0.3) K/mm3 Baso # (Auto) 0.0 (0.0-0.1) K/mm3 Abs Immat Gran (auto) 0.04 H (0.00-0.031) K/mm3 Absolute Neuts (auto) 3.9 (1.3-6.7) K/mm3 Absolute Nucleated RBC 0.000 (0.0-0.012) K/mm3 Band Neutrophils % Not Reportable Nucleated RBC % 0.0 (0.0-0.2) % Platelet Estimate Adequate (Adequate) Macrocytosis 1+ (NORMAL) Ovalocytes 1+ Schistocytes None seen Sodium 133 L (137-145) mmol/L Potassium 3.4 (3.4-5.0) mmol/L Chloride 101 (98-107) mmol/L Carbon Dioxide 18 L (22-30) mmol/L Anion Gap 14 H (4-12) mmol/L BUN 4 L (7-17) mg/dL Creatinine 0.58 L (0.7-1.0) mg/dL Estim Creat Clear Calc 143 ml/min Estimated GFR > 60 (59 - ) Glucose 89 (65-110) mg/dL Calcium 9.1 (8.4-10.2) mg/dL Total Bilirubin 0.6 (0.2-1.3) mg/dL AST 25 (14-36) U/L ALT 15 (6-35) U/L Alkaline Phosphatase 87 (38-126) U/L Total Protein 8.0 (6.3-8.2) g/dL Albumin 4.5 (3.5-5.1) g/dL Urine Color Yellow (Yellow) Urine Appearance Clear (Clear) Urine pH 6.0 (5.0-9.0) Ur Specific [place] 1.007 (1.001-1.035) Urine Protein Negative (Negative) mg/dL Urine Glucose (UA) Negative (Negative) mg/dL Urine Ketones 2+ H (Negative) mg/dL Ur Blood (Man) Negative (Negative) Urine Nitrate Negative (Negative) Urine Bilirubin Negative (Negative) Urine Urobilinogen 0.2 (<2.0) mg/dL Leukocyte Esterase Rfl Negative (Negative) SAL[place]/UL POC Urine HCG, Qual Negative (Negative) Influenza A (RT-PCR) Negative (Negative) Influenza B (RT-PCR) Negative (Negative) RSV (RT-PCR) Negative (Negative) SARS-CoV-2 RNA (RT-PCR) Negative (Negative) <Fany Leone PA-C - Last Filed: 02/16/25 00:35> Discharge Plan Discharge Clinical Impression: Gastroenteritis <Tee Jones MD - Last Filed: 02/15/25 21:12> Patient Disposition: Home, Self-Care <Tee Jones MD - Last Filed: 02/15/25 21:12> Condition: Stable <Tee Jones MD - Last Filed: 02/15/25 21:12> Instructions: Antibiotic Form, Clear Liquid Diet (ED), Gastroenteritis (ED) <Tee Jones MD - Last Filed: 02/15/25 21:12> Additional Instructions: Your evaluated in the emergency department for nausea, vomiting and diarrhea. Your workup shows signs of dehydration. Please make sure to drink plenty of fluids including water, Gatorade and Pedialyte. Once your symptoms have improved, you can attempt to eat a bland diet consisting of bananas, rice, applesauce and toast. Please take the medications as needed as directed and follow-up closely with her primary care provider. Return to the emergency department if you develop uncontrollable fever, you are unable to tolerate food or fluids, you develop focal abdominal pain, or other concerning symptoms. <Tee Jones MD - Last Filed: 02/15/25 21:12> Patient Language: Colombian <Tee Jones MD - Last Filed: 02/15/25 21:12> Prescriptions: New ondansetron 4 mg tablet,disintegrating 4 mg PO Q8H Qty: 14 0RF acetaminophen 500 mg capsule 500 mg PO Q6H PRN (Reason: fever or pain) Qty: 14 0RF No Action azithromycin [Zithromax Z-Lukas] 250 mg tablet See Rx Instructions .ROUTE .COMPLEX Qty: 6 0RF Rx Instructions: For 250 mg dose pack: take 500 mg today (day 1), then 250 mg for 4 days (days 2-5) ondansetron 4 mg tablet,disintegrating 4 mg PO Q8H PRN (Reason: nausea and vomiting) Qty: 7 0RF prednisone 20 mg tablet 40 mg PO DAILY 4 Days Qty: 8 0RF albuterol sulfate 90 mcg/actuation HFA aerosol inhaler 2 puff inhalation QID PRN (Reason: shortness of breath or wheezing) Qty: 8.5 0RF <Tee Jones MD - Last Filed: 02/15/25 21:12> Follow-up/Referrals: Sukhdeep Erwin MD [Physician] - UNKNOWN,DOCTOR [Primary Care Provider] - <Tee Jones MD - Last Filed: 02/15/25 21:12>
--- NOTE | 2025-02-15 21:17 | PC.NURSE ---
patient talking on phone and moving about in bed while attempting to access and start iv. difficult to obtain information about current symptoms and health state
--- OUTSIDE RECORDS SUMMARY | 2025-02-15 21:24 | XMS_ITS | Referral Summary ---
Author Organization [facility] Address [address] [place] [address] Care Team Providers Care Safety Sealer Name Role Phone Oanh Ennis MD Primary Care Provider Network, [facility] Unavailable Unavai lable Allergies [...] (02/14/2021): As of 02/08/21--last albuterol use around [id number] Food allergy 02/18/2011 Overview (03/09/2014): Tomatoes, peanuts; [...] migraine, keeping MACEDO diary IMO Load - [id number] Failed vision screen 02/21/2011 014 Overview (09/07/2012): Referred to ophthalmology. Now wearing glasses. Scabies 02/04/2010 02/18/2011 Overview (02/04/2010): Gave Rx for Permethrin x 2 doses. 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 05/07/2023 4:28 PM CDT 05/07/2023 7:36 PM CDT us Lidia Sidhu MD LAB BLOOD ORDERABLES Final R esult Performing Organization Address City/[facility]/ZIP Co de Phone Number [facility] [address] [place] [address] * Chlamydia trachomatis, Neisseria gonorrhoeae, and Trichomonas vaginalis, FER (05/07/2023 4:16 PM CDT) Pathologist [facility] C.TRACHOMATIS, FER Negative Negative [facility] 1 N.GONORRHOEAE, FER Negative Negative [facility] 1 TRICH VAG BY FER Negative Negative [facility] 1 URINE SPECIMEN / Unknown 05/07/2023 4:16 PM CDT 05/06/2023 11:00 PM CDT Comment:URINE Narrative [facility] - 05/09/2023 10:08 AM CDT SRC:URINE Performed at: 01 - [facility] [id number] Transcript Clerk: Josy Gale MD, Phone: [phone] us Lidia Sidhu MD LAB NON-BLOOD MICRO Final Re sult Performing Organization Address City/[facility]/ZIP Co de Phone Number [facility] [address] [place] [address] [facility] 1 * Hepatitis C Virus Antibody (03/31/2023 3:51 PM CDT) HEP C AB Not Detected Not Detected [facility] Comment: Antibodies to HCV not detected. This does not exclude the possibility of exposure to HCV. 03/31/2023 3:51 PM CDT 03/31/2023 7:30 PM CDT Lidia Sidhu MD LAB BLOOD ORDERABLES Final R esult [facility] [address] [place] [address] from Last 3 Months or Most Recently Relevant to Health Maintenance Insurance MEDICAID REPLACEMENT MEDICAID REPLACEMENT Care Teams Safety Sealer Relationship Specialty Start Date End Date Oanh Ennis MD PCP - General 02/21/09 Network, n Medical Home PCP - Medical Home 05/23/13
--- OUTSIDE RECORDS SUMMARY | 2025-02-15 21:24 | XMS_ITS | Clinical Summary ---
Author Organization [facility] Address [address] [place] [address] Care Team Providers Care Rn Imcu Name Role Phone Asked, No Prov Designated Primary Care Provider Unavailable Source Comments You are receiving this document as you are listed as the PCP, follow-upprovider, or the patient hasbeen referred to you for consultation. This is incompliance with [facility] Transitions of Care Requirement. Note: Specific treatmentrecords and notes about services for mental health, developmental disabilities,alcoholism, drug dependence, or substance abuse, you will need to contact theMedical Records Department at [phone] and complete a separate Release ofAuthorization form. They are also available to answer other questions.[facility] Immunizations Name Administration Dates Next Due Covid-19 (Pfizer) Dilution Required (Purple Cap) 11/02/2021,10/11/2021 Social History Tobacco Use Types Packs/Day Years Used Date Smoking Tobacco: Never Assessed Sex and Gender Information Value Date Recorded Sex Assigned at Not on file Gender Identity Not on file Sexual Orientation Not on file Plan of Treatment Health Maintenance Due Date Last Done Comments ANNUAL DEPRESSION SCREENING,ADULT 2004 ANNUAL BMI COUNSELING 2006 HIV SCREEN 2019 CHOL SCREENING: EVERY 5 YEARS 2024 Covid-19 Vaccine (3 - 2023-2 5 season) 2024 11/02/2021, 10/11/2021 INFLUENZA VACCINE (#1) 2024 ADULT VACCINE: TETANUS( TD) BOOSTER,EVERY 10 YR 05/26/2025 05/26/2015 ADULT VACCINE: SHINGRIX (1 o f 2) 2054 VACCINE: HPV (CDC RULES) Completed 016, 06/05/2015, 05/26/2015 PEDS RSV < 20 MON Aged Out No longer eligible based on patient's age to complete this topic PNEUMOCOCCAL VACCINE Aged Out No long er eligible based on patient's age to complete this topic Care Teams Rn Imcu Relationship Specialty Start Date End Date Asked, No Prov Designated [place] PCP - General Anesthesiology 10/11/21
--- OUTSIDE RECORDS SUMMARY | 2025-02-15 21:24 | XMS_ITS | Encounter Summary ---
Author Organization [facility] Address [address] [place] [address] Care Team Providers Care Clinical Biochemist Name Role Phone Oanh Ennis MD Primary Care Provider [phone] [facility] Unavailable Vanessa Armstrong [facility] Unavailable [phone] Katelin Galarza Unavailable Nicole Trujillo RN Unavailable Unavailable Stephon Rg Unavailable Reason for Visit * Reason Comments Refill Request Encounter Details Date Type Department Care Team (Late st Contact Info) Description 04/09/2015 Refill [facility] 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 [facility] [place] [address] Grievance And Appeals Coordinator 12/03/15 01/21/17 Katelin Galarza [address] [facility] [address] [address] [place] [address] Grievance And Appeals Coordinator 12/03/15 05/08/16 Nicole Trujillo, RN Grievance And Appeals Coordinator 12/10/15 01/21/17 Stephon Rg [address] [facility] [address] [place] [address] Grievance And Appeals Coordinator 05/09/16 01/21/17 documented as of this encounter
--- OUTSIDE RECORDS SUMMARY | 2025-02-15 21:24 | XMS_ITS | Encounter Summary ---
Author Organization [facility] Address [address] [place] [address] Care Team Providers Care Rail Equipment Operator Name Role Phone Oanh Ennis MD Primary Care Provider [phone] Network, [facility] Unavailable Kiran mc Encounter Details Date Type Department Care Team (Late st Contact Info) Description 02/09/2021 Social Referral Visit [place] Initial [address] [place] [address] Social History Tobacco Use Types Packs/Day Years Used Date Smoking Tobacco: Never Social Connections Answer Date Recorded Conversations with friends/family/neighbors per week Not on file 01/31/2021 Food Insecurity Answer Date Recorded Currently or in the past 3 m [facility], have you worried your food would [...] on file 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
--- OUTSIDE RECORDS SUMMARY | 2025-02-15 21:24 | XMS_ITS | Referral Summary ---
Author Organization [facility] Address [address] [place] [address] Care Team Providers Care Java Groovy Developer Name Role Phone Asked, No Prov Designated Primary Care Provider Unavailable Source Comments You are receiving this document as you are listed as the PCP, follow-upprovider, or the patient hasbeen referred to you for consultation. This is incompliance with [facility] Transitions of Care Requirement. Note: Specific treatmentrecords and notes about services for mental health, developmental disabilities,alcoholism, drug dependence, or substance abuse, you will need to contact theMedical Records Department at [phone] and complete a separate Release ofAuthorization form. They are also available to answer other questions.[facility] Immunizations Name Administration Dates Next Due Covid-19 (Pfizer) Dilution Required (Purple Cap) 11/02/2021,10/11/2021 Social History Tobacco Use Types Packs/Day Years Used Date Smoking Tobacco: Never Assessed Sex and Gender Information Value Date Recorded Sex Assigned at Not on file Gender Identity Not on file Sexual Orientation Not on file Plan of Treatment Not on file Care Teams Java Groovy Developer Relationship Specialty Start Date End Date Asked, No Prov Designated [place] PCP - General Anesthesiology 10/11/21
--- OUTSIDE RECORDS SUMMARY | 2025-02-15 21:24 | XMS_ITS | Clinical Summary ---
Author Organization [facility] Address [address] [place] [address] Care Team Providers Care Search Marketing Analyst Name Role Phone Oanh Ennis MD Primary Care Provider [phone] Network, [facility] Unavailable Unavai lable Allergies [...] (02/14/2021): As of 02/08/21--last albuterol use around [id number] Food allergy 02/18/2011 Overview (03/09/2014): Tomatoes, peanuts; [...] migraine, keeping [facility] diary IMO Load - [id number] Failed vision screen 02/21/2011 014 Overview (09/07/2012): Referred to ophthalmology. Now wearing glasses. Scabies 02/04/2010 02/18/2011 Overview (02/04/2010): Gave Rx for Permethrin x 2 doses. Immunizations Immunization Administration Dates Next Due Adacel - Tetanus-diphtheria- acellular Pertussis (Tdap) Vaccine 06/05/2015 Qgwhfbawxx-afjhpwi-zferswgsr Pertussis (DTaP) Injection 07/03/2009,06/07/2009,08/28/2008,09/09,2004 Fluarix (Pf) - [...] Currently or in the past [address] [facility], have you worried your food would run out before you had money to buy more? No 2020 In the past 12 months, have you run out of food or been unable to get more? No 02/08/2021 Transportation Needs Answer Date Record ed Currently or in the past [address] 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 05/07/2023 4:28 PM CDT 05/07/2023 7:36 PM CDT us Lidia Sidhu MD LAB BLOOD ORDERABLES Final R esult [facility] [address] [place] [address] * Chlamydia trachomatis, Neisseria gonorrhoeae, and Trichomonas vaginalis, FER (05/07/2023 4:16 PM CDT) C.TRACHOMATIS, FER Negative Negative [facility] 1 N.GONORRHOEAE, FER Negative Negative [facility] 1 TRICH VAG BY FER Negative Negative [facility] 1 URINE SPECIMEN / Unknown 05/07/2023 4:16 PM CDT 05/06/2023 11:00 PM CDT Comment:URINE Narrative [facility] - 05/09/2023 10:08 AM CDT SRC:URINE Performed at: - [facility] [id number] Computer Bookkeeper: Josy Gale MD, Phone: [phone] Lidia Sidhu MD LAB NON-BLOOD MICRO Final Re sult Performing Organization Address City/[facility]/ZIP Co de Phone Number [facility] [address] [place] [address] [facility] 1 * Hepatitis C Virus Antibody (03/31/2023 3:51 PM CDT) HEP C AB Not Detected Not Detected [facility] Comment: Antibodies to HCV not detected. This does not exclude the possibility of exposure to HCV. 03/31/2023 3:51 PM CDT 03/31/2023 7:30 PM CDT Lidia Sidhu MD LAB BLOOD ORDERABLES Final R esult [facility] [address] [place] [address] from Last 3 Months or Most Recently Relevant to Health Maintenance Insurance MEDICAID REPLACEMENT MEDICAID REPLACEMENT Care Teams Search Marketing Analyst Relationship Specialty Start Date End Date Oanh Ennis MD PCP - General 02/21/09 Network, n Medical Home PCP - Medical Home 05/23/13
[2025-02-15 21:41] VITALS: BP 130/85; PULSE 107; RESP 18; TEMP 38.8; O2SAT 100
--- NOTE | 2025-02-15 21:54 | PC.NURSE ---
attempted to draw labs from patient. patient requested that I only use her hands to draw blood and was not agreeable to me looking at her arms. [place].
[2025-02-15] MEDS: ACETAMINOPHEN 325 MG TABLET 650 MG PO (22:08)
[2025-02-15] MEDS: ONDANSETRON INJ 4 MG/2 ML VIAL IV PUSH (22:10)
[2025-02-15] MEDS: SODIUM CHLORIDE 0.9% IV 1,000 ML 999 ML IV CONT (22:10)
[2025-02-15 22:54] LABS: Basophils Percent Auto 0.2 % (0.2-1.2); Hematocrit 40.6 % (37.0-47.0); Hemoglobin 12.8 g/dL (12.0-15.0); Immature Granulocyte Absolute 0.04 K/mm3 (0.00-0.031); Immature Granulocyte Percent A 0.8 % (0-0.5); Lymphocytes Absolute Auto 0.64 K/mm3 (0.9-3.2); Lymphocytes Percent Auto 12.5 % (18.3-44.2); Mean Corpuscular HGB Conc 31.5 g/dl (32-36); Mean Corpuscular Hemoglobin 23.4 pg (26-34); Mean Corpuscular Volume 74.4 fl (80-100); Monocytes Absolute Auto 0.5 K/mm3 (0.1-0.6); Monocytes Percent Auto 10.2 % (2.6-8.5); Neutrophils Absolute Auto 3.9 K/mm3 (1.3-6.7); Neutrophils Percent Auto 76.3 % (45.5-73.1); Platelet Count Result 310 k/mm3 (150-375); Red Blood Count 5.46 M/mm3 (4.2-5.4); Red Cell Distribution Width 15.2 % (11.5-14.5); White Blood Count 5.1 K/mm3 (4.5-10.0)
[2025-02-15 23:08] LABS: Alanine Aminotransferase 15 U/L (6-35); Albumin Level 4.5 g/dL (3.5-5.1); Alkaline Phosphatase 87 U/L (38-126); Anion Gap 14 mmol/L (4-12); Aspartate Amino Transferase 25 U/L (14-36); Bilirubin,Total 0.6 mg/dL (0.2-1.3); Blood Urea Nitrogen 4 mg/dL (7-17); Calcium 9.1 mg/dL (8.4-10.2); Carbon Dioxide 18 mmol/L (22-30); Chloride 101 mmol/L (98-107); Estimated CRCL calculation 143 ml/min; Estimated Glomerular Filt Rate > 60; Glucose 89 mg/dL (65-110); Potassium 3.4 mmol/L (3.4-5.0); Sodium 133 mmol/L (137-145)
[2025-02-15 23:18] LABS: Macrocytosis 1+ (NORMAL); Ovalocytes 1+; Platelet Estimate Adequate (Adequate); Schistocytes None Seen
[2025-02-15 23:38] VITALS: BP 121/79; PULSE 98; RESP 14; TEMP 37.7; O2SAT 100
[2025-02-15 23:45] LABS: BEDSIDEPREGUCG Negative (Negative)
[2025-02-15 23:49] LABS: Add Urine Microscopic? NO; Appearance Urine Clear (Clear); Bilirubin Urine Negative (Negative); Blood Urine Negative (Negative); Color Urine Yellow (Yellow); Glucose Urine UA Negative (Negative); Ketones Urine 2+ mg/dL (Negative); Leukocyte Esterase Ur Negative LEU/UL (Negative); Nitrate Urine Negative (Negative); Protein Urine Negative (Negative); Specific Grav Ur 1.007 (1.001-1.035); Urobilinogen Urine 0.2 mg/dL (<2.0)
[2025-02-16 00:24] LABS: Influenza A QL RT-PCR Negative (Negative); Influenza B QL RT-PCR Negative (Negative); RSV RNA, RT-PCR Negative (Negative); SARS-CoV-2 RNA PCR Negative (Negative)
== END 2025-02-16 00:47 | disposition home or self-care (01) ==
PROVIDERS: Emergency Provider Family Medicine
DX: K52.9 Noninfective gastroenteritis and colitis, unspecified (principal); Z20.822 Contact with and (suspected) exposure to COVID-19; J45.909 Unspecified asthma, uncomplicated
CPT/HCPCS: 36415; 80053; 81003; 81025; 85025; 87637; 96361; 96374; 99284; A9270; J2405; J7030